=== PATIENT | female | born 1955 | race Caucasian/White ===

== ENCOUNTER 2018-09-20 05:29 | Day surgery (SDC) | payer BC, MEDICAID ==
[2018-09-20] MEDS ORDERED: Dextrose 5%-Lactated Ringers 1,000 ML IV SCH ×2 (06:00)
[2018-09-20] MEDS ORDERED: fentaNYL 100 MCG/2 ML SDV ONE (07:07)
[2018-09-20] MEDS ORDERED: Midazolam 1 MG/ML 2 ML SDV ONE (07:07)
[2018-09-20] MEDS ORDERED: Propofol 200 MG/20 ML SDV ONE (07:07)
--- NOTE | 2018-09-26 13:40 | OR ---
DATE OF PROCEDURE: 09/20/2018 PREOPERATIVE DIAGNOSIS: Indications for screening colonoscopy. POSTOPERATIVE DIAGNOSIS: A single small polyp in the sigmoid colon. PROCEDURE: Flexible colonoscopy with polypectomy by snare technique. ANESTHESIA: IV sedation. INDICATION FOR PROCEDURE: This is a 62-year-old presenting for a screening colonoscopy. Plan is to proceed with a colonoscopy with polyp biopsies and/or polypectomy as indicated. Potential risks including bleeding and perforation were discussed and the patient wishes to proceed. DETAILS OF PROCEDURE: The patient was taken to the operating room and placed in a left lateral decubitus position. IV sedation was administered, after which the initial digital rectal exam was performed and was unremarkable. The colonoscope was then passed to the level of the rectum with retroflexion revealing uncomplicated hemorrhoidal columns. The scope was then eventually passed to the level of the ileocecal valve. The prep was fairly good. Only one abnormality was seen, that was a small polyp at roughly 20 cm. This measured around 3 mm in size. The remainder of the exam was unremarkable. There were no diverticula. No areas of colitis. No additional areas of polyps or neoplasia seen. This polyp was once again identified and encircled at its base with the snare and excised. This was collected via the suction and sent for pathologic review. Good hemostasis was noted at the polypectomy site. The scope was withdrawn and the patient was taken to the recovery room in satisfactory condition. The plan will be to await the pathology report. If this is an adenomatous polyp, then she should have a repeat colonoscopy in roughly 2 years. Jovanni Irvin MD /[id number]
== END 2018-09-20 09:26 | disposition home or self-care (01) ==
LOC: JP.SDS 05:29
PROVIDERS: ATTEND Surgery
DX: Z12.11 Encounter for screening for malignant neoplasm of colon (principal); D12.5 Benign neoplasm of sigmoid colon; K64.9 Unspecified hemorrhoids; F41.9 Anxiety disorder, unspecified; E66.9 Obesity, unspecified; Z68.37 Body mass index [BMI] 37.0-37.9, adult; Z91.018 Allergy to other foods
CPT/HCPCS: 45385; 88305; J2250; J2704; J3010; J7042

== ENCOUNTER 2021-01-24 07:22 | Day surgery (SDC) | payer BC, MEDICARE ==
[2021-01-24] MEDS ORDERED: Sodium Chloride 0.9% 1,000 ML IV SCH (08:00)
[2021-01-24] MEDS ORDERED: Propofol 200 MG/20 ML SDV ONE (08:54)
[2021-01-24] MEDS ORDERED: fentaNYL 100 MCG/2 ML SDV ONE (08:54)
[2021-01-24] MEDS ORDERED: Midazolam 1 MG/ML 2 ML SDV ONE (08:55)
--- NOTE | 2021-01-24 15:54 | OR ---
DATE OF PROCEDURE: 01/24/2021 SURGEON: Andrei Garvey MD PROCEDURE: Colonoscopy. FINDINGS: Normal colonoscopy. PREOPERATIVE DIAGNOSIS: Screening colonoscopy. POSTOPERATIVE DIAGNOSIS: Screening colonoscopy. RISKS: Risks, benefits, alternatives, and limitations including but not limited to infection, bleeding, perforation, and false positives and false negatives were explained to the patient. They wished to proceed. PROCEDURE IN DETAIL: The patient was placed in left lateral decubitus position. Digital rectal exam was performed without abnormality. Scope was introduced and advanced atraumatically to the ileocecal valve. A photo was taken. The scope was brought back to the ascending, transverse, and descending colon and retroflexed. No evidence of old or new blood. No masses. No polyps. No diverticulosis. No abnormalities on retroflexion. No colitis. No abnormalities. Greater than 8 minutes was spent removing the scope. The prep was acceptable, approximately 90% of luminal surface could be seen. The patient tolerated the procedure well. Andrei Garvey MD /[id number]
== END 2021-01-24 11:15 | disposition home or self-care (01) ==
LOC: JP.SDS 07:22
PROVIDERS: ATTEND Surgery
DX: Z12.11 Encounter for screening for malignant neoplasm of colon (principal); Z88.8 Allergy status to other drugs, medicaments and biological substances
CPT/HCPCS: J2250; J2704; J3010; J7030

== ENCOUNTER 2021-08-19 20:10 | Emergency (ER) | payer BC, MEDICARE ==
[2021-08-19] MEDS ORDERED: fentaNYL 100 MCG/2 ML SDV IM ONE (20:40)
[2021-08-19] MEDS ORDERED: Ondansetron 4 MG Tab.DIS PO ONE (20:40)
== END 2021-08-19 22:38 | disposition home or self-care (01) ==
LOC: JP.ED 20:10
DX: R10.11 Right upper quadrant pain (principal); E66.9 Obesity, unspecified; Z68.38 Body mass index [BMI] 38.0-38.9, adult; Z91.018 Allergy to other foods; Z88.8 Allergy status to other drugs, medicaments and biological substances; Z72.0 Tobacco use
CPT/HCPCS: 36415; 80053; 83605; 83690; 84484; 85025; 96372; 99284; A9270; J3010

== ENCOUNTER 2021-10-24 07:35 | Day surgery (SDC) | payer BC, MEDICARE ==
[2021-10-24] MEDS ORDERED: Sodium Chloride 0.9% 1,000 ML IV SCH (08:15)
[2021-10-24] MEDS ORDERED: Ondansetron 4 MG/2 ML SDV ONE (08:50)
[2021-10-24] MEDS ORDERED: Glycopyrrolate 0.2 MG/ML 5 ML MDV ONE (08:50)
[2021-10-24] MEDS ORDERED: Rocuronium 50 MG/5 ML Vial ONE (08:50)
[2021-10-24] MEDS ORDERED: Succinylcholine 200 MG/10 ML MDV ONE (08:50)
[2021-10-24] MEDS ORDERED: Dexamethasone 4 MG/ML SDV ONE (08:50)
[2021-10-24] MEDS ORDERED: Propofol 200 MG/20 ML SDV ONE (08:50)
[2021-10-24] MEDS ORDERED: Neostigmine Methylsulfate 1 MG/ML 5 ML Syringe ONE (08:50)
[2021-10-24] MEDS ORDERED: fentaNYL 250 MCG/5 ML SDV ONE (08:51)
[2021-10-24] MEDS ORDERED: ceFAZolin 2 GM in Premix Bag 1 BAG IV ONE (09:00)
[2021-10-24] MEDS ORDERED: metroNIDAZOLE/Normal Saline 500 MG in Premix Bag 1 BAG IV ONE (09:00)
[2021-10-24] MEDS: Bupivacaine 0.5% 50 ML MDV ONE ×2 (09:25→10:30)
[2021-10-24] MEDS: Lidocaine 1% with EPINEPHrine 1:100,000 50 ML MDV ONE ×2 (09:26→10:30)
[2021-10-24] MEDS ORDERED: Zolpidem 5 MG Tab PO PRN (09:48)
[2021-10-24] MEDS ORDERED: Benzocaine/Cetylpyridinium/Menthol Lozenge MUCMEM PRN (09:48)
[2021-10-24] MEDS ORDERED: fentaNYL 100 MCG/2 ML SDV IVPUSH PRN ×3 (09:48)
[2021-10-24] MEDS ORDERED: Ondansetron 4 MG/2 ML SDV IVPUSH PRN (09:48)
[2021-10-24] MEDS ORDERED: hydrOXYzine HCL 100 MG/2 ML SDV IM PRN (09:48)
[2021-10-24] MEDS ORDERED: Acetaminophen/HYDROcodone 325-5 MG Tab PO PRN (09:48)
[2021-10-24] MEDS ORDERED: Docusate Sodium 100 MG Cap PO PRN (09:48)
[2021-10-24] MEDS ORDERED: Scopolamine 1.5 MG Transdermal Patch TOP SCH (10:00)
[2021-10-24] MEDS ORDERED: fentaNYL 100 MCG/2 ML SDV ONE (10:20)
[2021-10-24] MEDS ORDERED: Ketorolac 30 MG/ML SDV ONE (10:38)
[2021-10-25] MEDS ORDERED: SCOPOLAMINE PATCH CHECK TOP SCH (09:00)
== END 2021-10-24 13:20 | disposition home or self-care (01) ==
LOC: JP.SDS 07:35
PROVIDERS: ATTEND Surgery
DX: K80.10 Calculus of gallbladder with chronic cholecystitis without obstruction (principal); I10 Essential (primary) hypertension; F41.9 Anxiety disorder, unspecified; J45.909 Unspecified asthma, uncomplicated; E66.9 Obesity, unspecified; Z98.890 Other specified postprocedural states; Z88.8 Allergy status to other drugs, medicaments and biological substances; Z91.018 Allergy to other foods; Z79.899 Other long term (current) drug therapy; Z79.82 Long term (current) use of aspirin
CPT/HCPCS: 36415; 80053; 85027; J0171; J0330; J0690; J1100; J1885; J2405; J2704; J2710; J2795; J3010; J3490; J7030; J7120